=== PATIENT | female | born 1990 | race Two or more races ===

== ENCOUNTER 2022-02-10 16:40 | Day surgery (SDCO) | payer OTHER ==
[~2022-02-10] VITALS: Ht 157.5 cm; Wt 105.3 kg
[2022-02-10 17:36] LABS: BASOPHIL 0.2 % (0-2); EOSINOPHIL 0 % (0-5); HCT 41.2 % (37.0-47.0); HGB 13.8 g/dl (12.5-16.0); LYMPHOCYTE 9.2 % (15-48); MCH 29.7 pg (25.0-31.0); MCHC 33.5 g/dL (32.0-36.0); MCV 88.6 fL (78.0-100.0); MONOCYTE 4.2 % (0-12); NEUTROPHIL 86.1 % (41-80); NRBC 0; PLT 292 K/uL (150-400); RBC 4.65 M/uL (4.20-5.40); RDW 12.7 % (11.5-14.0)
[2022-02-10 17:56] LABS: ALBUMIN 3.7 g/dL (3.4-5.0); BILIRUBIN - TOTAL 0.6 mg/dL (0.2-1.0); BUN/CREAT RATIO (CALC) 10.7 RATIO; CREATININE 0.56 mg/dL (0.51-0.95); GLOBULIN (CALCULATION) 4.2 g/dL; MAGNESIUM 1.8 mg/dL (1.8-2.4); POTASSIUM 3.1 mmol/L (3.5-5.1); TOTAL PROTEIN 7.9 g/dL (6.4-8.2)
[2022-02-10 18:02] LABS: PROTHROMBIN TIME 12.6 SECONDS (11.8-13.4); PTT 27.3 SECONDS (24.4-34.7)
[2022-02-10 18:04] LABS: D-DIMER 1.06 ug/mLFEU (0.00-0.41)
[2022-02-10 20:03] LABS: BILIRUBIN NEGATIVE (NEGATIVE); BLOOD 1+ Ery/uL (NEGATIVE); CLARITY CLEAR (CLEAR); COLOR YELLOW (YELLOW); GLUCOSE (U) NORMAL (NORMAL); LEUKOCYTES NEGATIVE Leu/uL (NEGATIVE); NITRITE NEGATIVE (NEGATIVE); PROTEIN TRACE (LOW) mg/dL (NEGATIVE); UROBILINOGEN 0.2 mg/dL (0.2-1.0); pH 8.5 (5.0-9.0)
[2022-02-10 20:17] LABS: AMORPHOUS URATES CRYSTALS MODERATE; URINARY WBC RARE
[2022-02-10 21:39] LABS: CORONAVIRUS 2019 SARS-COV-2 NEGATIVE (NEGATIVE); INFLUENZA A NAA NEGATIVE (NEGATIVE)
[2022-02-10] MEDS ORDERED: METFORMIN HCL500 MG PO (23:42)
[2022-02-11 03:21] LABS: BASOPHIL 0.1 % (0-2); EOSINOPHIL 0.1 % (0-5); HCT 38.7 % (37.0-47.0); MCHC 33.6 g/dL (32.0-36.0); MCV 89.2 fL (78.0-100.0); MONOCYTE 7.9 % (0-12); MPV 9.8 fL (6.0-9.5); NEUTROPHIL 78.5 % (41-80); NRBC 0; PLT 290 K/uL (150-400); RBC 4.34 M/uL (4.20-5.40); RDW 12.7 % (11.5-14.0); WBC 16.5 K/uL (4.0-10.5)
[2022-02-11 03:48] LABS: BUN/CREAT RATIO (CALC) 11.7 RATIO; CREATININE 0.6 mg/dL (0.51-0.95); FT4 (FREE T4) 1.1 ng/dL (0.76-1.46); POTASSIUM 3.6 mmol/L (3.5-5.1)
[2022-02-11] MEDS ORDERED: PROGESTERONE200 MG PO (07:02)
--- NOTE | 2022-02-11 16:29 | NUR ---
02/11/22 Ms. Lora lives at home with her spouse. Both are working. They do not have a PCP. They were referred to the [facility] and educated to food distribution for the community through the dineout.
[2022-02-12 03:55] LABS: BASOPHIL 0.2 % (0-2); EOSINOPHIL 0.2 % (0-5); HCT 37.3 % (37.0-47.0); HGB 12.2 g/dl (12.5-16.0); LYMPHOCYTE 17.7 % (15-48); MCH 29.8 pg (25.0-31.0); MCHC 32.7 g/dL (32.0-36.0); MCV 91.2 fL (78.0-100.0); MONOCYTE 10.3 % (0-12); NEUTROPHIL 71.2 % (41-80); NRBC 0; PLT 244 K/uL (150-400); RBC 4.09 M/uL (4.20-5.40); RDW 13.2 % (11.5-14.0); WBC 11.8 K/uL (4.0-10.5)
[2022-02-12 04:11] LABS: BUN/CREAT RATIO (CALC) 12.3 RATIO; CREATININE 0.65 mg/dL (0.51-0.95); POTASSIUM 3.5 mmol/L (3.5-5.1)
[2022-02-12] MEDS ORDERED: ONDANSETRON ODT4 MG PO (13:37)
[2022-02-12] MEDS ORDERED: OXYCODONE-ACET1 EAC1 PO (13:52)
[2022-02-12] MEDS ORDERED: OXY-IR 5MG5 MG PO (16:09)
[2022-02-12] MEDS ORDERED: AMOX TR-K CLV1 EAC4 PO (18:28)
== END 2022-02-12 16:00 | disposition home or self-care (01) ==
LOC: FER 16:40 → FTCU 20:31
PROVIDERS: Emergency Medicine; Internal Medicine; Nurse Practitioner Acute Care; ADMIT Internal Medicine
DX: K80.12 Calculus of gallbladder with acute and chronic cholecystitis without obstruction (principal); K82.8 Other specified diseases of gallbladder; K76.0 Fatty (change of) liver, not elsewhere classified; E05.90 Thyrotoxicosis, unspecified without thyrotoxic crisis or storm; E66.01 Morbid (severe) obesity due to excess calories; Z20.822 Contact with and (suspected) exposure to COVID-19
CPT/HCPCS: 36415; 71275; 80048; 80053; 80061; 81001; 83036; 83690; 83735; 83880; 84439; 84443; 84484; 84703; 85025; 85379; 85610; 85730; 93005; 94010; G0378; J1170; J1885; J2250; J2405; J2543; J2704; J2710; J3010; J3475; J3480; J7120; Q9967; U0002